=== PATIENT | female | born 1990 | race Caucasian/White ===

== ENCOUNTER 2019-12-05 13:47 | Emergency (ER) | payer OTHER ==
[~2019-12-05] VITALS: Ht 172.7 cm; Wt 85.0 kg
[2019-12-05 14:05] VITALS: BP 125/85
== END 2019-12-05 16:10 | disposition left against medical advice (07) ==
LOC: EDSEX 13:47 → ED 16:09
DX: B34.9 Viral infection, unspecified (principal); R05 Cough; R50.9 Fever, unspecified; R09.81 Nasal congestion; F17.200 Nicotine dependence, unspecified, uncomplicated
CPT/HCPCS: 36415; 71045; 87635; 99283; 99284

== ENCOUNTER 2020-02-01 00:52 | Emergency (ER) | payer OTHER ==
[~2020-02-01] VITALS: Ht 172.7 cm; Wt 84.0 kg
[2020-02-01] MEDS ORDERED: MORPHINE SULFATE 4 MG/ML, 1ML ONE (01:20)
[2020-02-01] MEDS ORDERED: KETOROLAC 30 MG/1 ML ONE (01:20)
[2020-02-01] MEDS ORDERED: ONDANSETRON 2MG/ML, 2ML ONE (01:20)
[2020-02-01] MEDS ORDERED: MIRTAZAPINE PO (01:28)
[2020-02-01] MEDS ORDERED: SODIUM CHLORIDE FLUSH 10ML SYR IVF ONE (01:30)
[2020-02-01] MEDS ORDERED: MORPHINE SULFATE 4 MG/ML, 1ML IVPush PRN (01:30)
[2020-02-01] MEDS ORDERED: KETOROLAC 30 MG/1 ML IVPush ONE (01:30)
[2020-02-01] MEDS ORDERED: ONDANSETRON 2MG/ML, 2ML IVPush ONE (01:30)
[2020-02-01] MEDS ORDERED: ALBUTEROL 0.5%, 20ML NPPB SCH (01:30)
[2020-02-01 01:33] LABS: BASOPHILS % (AUTO) 1 % (0-1); EOSINOPHILS % (AUTO) 2 % (1-7); LYMPHOCYTES % (AUTO) 44 % (22-44); MEAN CORPUSCULAR HGB CONC 33.4 g/dL (32.4-35.8); MEAN PLATELET VOLUME 8.3 fL (7.4-10.4); MONOCYTES % (AUTO) 7 % (2-9); NEUTROPHILS % (AUTO) 46 % (42-75); PLATELET COUNT 369 x10^3/uL (130-400); RED BLOOD COUNT 4.35 x10^6/uL (3.82-5.3); RED CELL DISTRIBUTION WIDTH 12.9 % (9.6-15.2)
[2020-02-01 01:36] LABS: MD NO
[2020-02-01 01:36] LABS: MICROSCOPIC AUTO
[2020-02-01 01:39] LABS: ALANINE AMINOTRANSFERASE 20 U/L (12-78); ALBUMIN 3.8 g/dL (3.4-5.0); ANION GAP 5 mmol/L (5-15); CALCIUM 8.6 mg/dL (8.5-10.1); CHLORIDE 109 mmol/L (98-107); CREATININE 1.02 mg/dL (0.55-1.02)
[2020-02-01 01:43] LABS: ALKALINE PHOSPHATASE 65 U/L (45-117); BILIRUBIN,TOTAL 0.3 mg/dL (0.2-1.0); TOTAL PROTEIN 7.3 g/dL (6.4-8.2)
--- NOTE | 2020-02-01 01:58 | NUR ---
REPORT RECEIVED FROM PELON RN, PT RETURNED FROM CT, RESTING ON GURNEY W/ CALL LIGHT IN REACH AND SIDE RAILS UPX2. RESP EVEN AND UNLABORED, ROSANA. AWAITING RESULTS.
[2020-02-01 02:39] VITALS: BP 114/72
--- NOTE | 2020-02-01 02:40 | NUR ---
ALL TESTS RESULTED. PT IS UP FOR RECHECK AT THIS TIME.
--- NOTE | 2020-02-01 03:09 | NUR ---
BREAK RN: PT. AMBULATORY TO D/C DESK WITH STEADY GAIT. NO DISTRESS NOTED.
== END 2020-02-01 03:09 | disposition home or self-care (01) ==
LOC: ED 01:06
DX: N20.1 Calculus of ureter (principal)
CPT/HCPCS: 36415; 74176; 80053; 81001; 83690; 84703; 85025; 96374; 96375; 99284; J1885; J2270; J2405

== ENCOUNTER 2020-05-07 18:25 | Emergency (ER) | payer OTHER ==
[~2020-05-07] VITALS: Ht 172.7 cm; Wt 81.6 kg
[~2020-05-07 18:25] MED LIST: MIRTAZAPINE PO
[2020-05-07 19:30] VITALS: BP 131/89
--- NOTE | 2020-05-07 20:31 | NUR ---
Patient given discharge instructions and they have confirmed that they understand the instructions. Patient ambulatory with steady gait.
== END 2020-05-07 20:33 | disposition home or self-care (01) ==
LOC: ED 20:20
DX: L73.9 Follicular disorder, unspecified (principal); F17.200 Nicotine dependence, unspecified, uncomplicated
CPT/HCPCS: 99283